=== PATIENT | male | born 1960 | race Caucasian/White ===

== ENCOUNTER 2022-01-10 01:56 | Day surgery (SDC) | payer BC, SELFPAY ==
[2022-01-02 08:36] VITALS: BMI 27.4
--- NOTE | 2022-01-02 08:42 | PC.NURSE ---
Report to the Outpatient Waiting Room, entrance under the green pavilion located off [facility], at time _0630_ on date __01/10/22. OR Time: _0830. - You and your visitor will be asked a series of questions to screen for COVID 19 for your protection. - Only one visitor is allowed at this time. - The patient visitor is requested to leave or wait in car when not with patient. - A mask is required within the hospital. Patients may have clear liquids (water, carbonated beverages, clear teas, apple juice) until 3 hours prior to surgery with a maximum of 20 ounces. - No food from midnight until time of surgery - Infants may have breast milk until 4 hours before surgery, formula 6 hours prior to surgery. - Children will be allowed to drink immediately following surgery. If applicable, please bring a bottle or sippy cup to assist with drinking. Juice, water, soda, and popsicles are readily available. For infants on formula, please bring formula the day of surgery. Pacifiers are allowed. Take the following medications with a SIP of water the morning of surgery: NONE Medications to discontinue per physician NONE Date to take last dose Please no make-up, nail macanese, hairspray, perfume, deodorant, or body powder the day of surgery. No jewelry (including any body piercings) or valuables the day of surgery, leave them at home. Please take a shower or bath the night before, or the morning of, surgery with an antibacterial soap (INSTRUCTED TO USE HIBICLENS). Wear comfortable, loose fitting clothing. Children are encouraged to wear pajamas. - Jewelry must be removed prior to entering the operating room. Rings and piercings that are not removed may be cut off. - The hospital will not accept responsibility for valuables. - Please leave all valuables, including medications, at home the day of surgery. If you are going home after surgery, a licensed mobile lounge driver or operator must drive you home. - NO public transportation without another adult. - We recommend that an adult stay with you for 24 hours following discharge. - We also recommend that you do not drive, make important decision, drink alcoholic beverages, or take any drugs that were not prescribed by your health care provider for at least 24 hours after your discharge time. For Pediatric surgeries, we recommend two adults accompany the child home (only one inside the building at this time). Follow any additional instructions given to you from your surgeon. If you or anyone in your household have experienced Covid symptoms in the past week, please notify your surgeon or the nurse liaison at the phone number below for possible testing. Telephone instructions given to _PATIENT____and asked if any additional questions and then verbalized understanding. Patient advised to call surgeon office or pre surgery nurse liaison [phone] if any additional questions.
[2022-01-10 06:55] VITALS: BP 128/81; PULSE 58; RESP 16; TEMP 36.4; O2SAT 98
[2022-01-10] MEDS: ACETAMINOPHEN 500 MG TABLET 1000 MG PO (07:11)
[2022-01-10] MEDS: KETOROLAC 15 MG/ML VIAL (*BKC) IV PUSH (07:19)
--- NOTE | 2022-01-10 07:48 | P.PNAN_ITS ---
Anes - Initial Pre Proc Eval Procedure: Operation Date: 01/10/22 08:30 Proposed Procedures p Left Inguinal Hernia Repair - Kyle Becker MD Date/Time: 01/10/22 07:48 Surgeon: Kyle Becker MD Pre Op Diagnosis: left inguinal hernia Patient Data Age: 61 Gender: M Height: 1.96 m Weight: 107.5 kg Last Vital Signs Temp 36.4 C L 01/10/22 06:55 Pulse 58 L 01/10/22 06:55 Resp 16 01/10/22 06:55 BP 128/81 01/10/22 06:55 Pulse Ox 98 01/10/22 06:55 O2 Del Method Room Air 01/10/22 06:55 Allergies Allergy/AdvReac Type Severity Reaction Status Date / Time No Known Allergies Allergy Verified 01/10/22 07:07 Home Medications Medication Instructions Recorded Confirmed Type finasteride 5 mg tablet 5 mg PO DAILY 01/01/22 01/10/22 History lisinopril 5 mg tablet 5 mg PO DAILY 01/01/22 01/10/22 History Patient hx anesthesia problems: none Family hx anesthesia problems: none Results Review: All pre-operative results and documents have been reviewed as part of the pre- operative evaluation. [facility] Past Medical History Medical History Enlarged prostate HTN (hypertension) Surgical History Surgical History History of shoulder surgery R shoulder- tendon repair Hx of hernia repair Family History Family History Other Heart disease Social History Social History Smoking status: Never smoker Alcohol intake: current Drinks per week: 4 Living arrangements: with family Anes - Eval Final PreProcedure Day of Procedure 01/10/22 07:48 Patient weight: overweight Heart: regular rate and rhythm Lungs: clear to auscultation Airway: Mallampati scale class II Neurological: alert and oriented Last oral intake: >/= 8 hours ASA classification: II Emergent: no Anesthetic plan: proceed Anesthesia type and monitoring: general GIVS and standard monitoring Results Review: All pre-operative results and documents have been reviewed as part of the pre- operative evaluation. Informed Consent: The patient's anesthetic plan and its attendant risks and benefits were discussed with the patient/family/POA. Questions were solicited and answers provided to the satisfaction of the patient/family/POA.
[2022-01-10] MEDS: LACTATED RINGERS 1,000 ML 30 ML IV CONT ×3 (08:09→10:59)
--- NOTE | 2022-01-10 08:51 | WPDHPUPDATE1 ---
History and Physical Update Update Date/Time: 01/10/22 08:51 History and Physical has been reviewed, including an updated exam of the patient. There are NO changes in the patient's condition. Risks, benefits, and alternatives have been discussed and questions answered. Patient agrees to proceed with procedure.
[2022-01-10] MEDS: ceFAZolin 2 GM/D5W 50 ML 2 GM/50 ML BAG IVPB (08:56)
[2022-01-10] MEDS: BUPIVACAINE/EPINEPHRINE 0.25% 50 ML VIAL 30 ML INFILTRATE (09:02)
[2022-01-10 10:19] VITALS: BP 113/64; PULSE 58; RESP 16; O2SAT 98
[2022-01-10 10:45] VITALS: BP 119/74; PULSE 59; RESP 16; O2SAT 98
--- NOTE | 2022-01-10 11:00 | SUR.PHASEII ---
PATIENT ENCOURAGED TO DRINK LOTS OF WATER; UNDERSTANDS THAT HE NEEDS TO URINATE IN ORDER TO GO HOME.
[2022-01-10 11:15] VITALS: BP 131/78; PULSE 60; RESP 16
[2022-01-10 11:45] VITALS: BP 141/70; PULSE 46; RESP 16
--- NOTE | 2022-01-10 12:20 | P.OP_ITS ---
Procedure Note - Detailed Date of Procedure 01/10/22 Pre-op Diagnosis left inguinal hernia Post-op Diagnosis Same Procedure Performed Repair left inguinal hernia with extra-large PerFix Light plug and patch Surgeon Kyle Becker MD [employer] Lucinda VELÁZQUEZ Anesthesia General (G IV S), Local (0.25% bupivacaine with epinephrine) and Other (Xaracoll) Indications Patient has noticed a bulge in the left groin that was painful on a stress test. He had a previous right inguinal hernia repair. Examination showed a large left inguinal hernia. He is taken to surgery now for repair. Findings Large direct left inguinal hernia Description of Procedure Patient was taken to surgery and anesthesia was introduced. The left groin and genitalia were prepped and draped. The proposed incision was marked on the skin. Local anesthesia was infiltrated into the skin and the deeper subcutaneous tissues. Incision was made dissection was carried down through the subcutaneous and through Hong's fascia. Crossing veins were cauterized and divided. The external oblique aponeurosis was exposed as was the external ring. Additional local was infiltrated deep to the aponeurosis in the area of the spermatic cord and the inguinal canal contents. The external oblique was then opened laterally and extended medially through the external ring. The leaves of the aponeurosis were freed from the underlying inguinal canal contents. The ileoinguinal nerve was left attached to the cord and left unharmed during the procedure. We then mobilized the cord medially on a Tenafly drain. We d issected the cord back to the internal ring. The hernia was fairly obvious and was dissected free from the cord. It was a large direct defect. I looked in the cord and found no evidence of an indirect hernia. We dissected the direct hernia defect to its neck. I then divided the transversalis fascia circumferentially around the neck of the hernia about a cm from the inguinal fascia. I dunked the sac into the retroperitoneum. An extra-large PerFix Light plug was then placed in the deep checked. I sutured the edges of the plug to transversalis fascia with interrupted 3-0 Vicryl suture. I then closed somewhat the defect using some interrupted 4-0 Vicryl suture. The patch was then cut to the appropriate size and placed over the inguinal canal floor. It passed beyond the cord on each side. I then placed the Xaracoll 1st piece over the patch. The cord and ilioinguinal nerve were laid over the Xaracoll. The external oblique aponeurosis was closed with interrupted 3-0 Vicryl suture. A 2nd piece of Xaracoll was laid over the external oblique aponeurosis. Hong's fascia was closed with interrupted 3-0 Vicryl suture. The last piece of Xaracoll was placed in the subcutaneous. The skin was loosely approximated with subcuticular interrupted 4-0 Vicryl skin suture. The skin was finally closed with a running 4-0 Monocryl skin suture. The wound was dressed with Exofin surgical adhesive. Patient was awakened and taken to recovery in good condition. Sponge and needle counts were correct x2. Implants Extra large PerFix Light plug and patch, Xaracoll Estimated Blood Loss -5 Drains No Packing No Pathology None sent Complications No immediate complications Condition Stable Disposition Same day [facility] Billing Surgery - Charge Forward: Surgery Billing (Repair left inguinal hernia)
--- NOTE | 2022-01-10 12:38 | SUR.PHASEII ---
1145 VOIDED WITH GOOD STREAM.
== END 2022-01-10 12:20 | disposition home or self-care (01) ==
PROVIDERS: PCP Family Medicine; Visit Provider Surgery
PROC: (CPT 49505; principal; 2022-01-10 08:30)
DX: K40.90 Unilateral inguinal hernia, without obstruction or gangrene, not specified as recurrent (principal); I10 Essential (primary) hypertension; N40.0 Benign prostatic hyperplasia without lower urinary tract symptoms
CPT/HCPCS: 49505; A9270; C1781; J0690; J1885; J2001; J2250; J2370; J2405; J2704; J3010; J7120

== ENCOUNTER 2023-05-31 03:49 | Day surgery (SDC) | payer BC, SELFPAY ==
[2023-05-22 09:26] VITALS: BMI 26.1
--- NOTE | 2023-05-22 09:32 | PC.NURSE ---
Report to the Outpatient Waiting Room, entrance under the green pavilion located off [facility], at time 0730 on date 05/31/23. Planned Procedure Time: 0930. Time changes happen often and if your time is changed the preop area will call you the afternoon before. - You and your visitor will be asked to self-screen and do not enter if you have any COVID symptoms. - A mask is optional within the hospital at this time. Patients may have clear liquids (water, carbonated beverages, clear teas, apple juice) until 3 hours prior to surgery with a maximum of 20 ounces. - No food from midnight until time of surgery Take the following medications with a SIP of water the morning of surgery: NONE DO NOT STOP ANY OF YOUR OTHER PRESCRIPTION MEDICATIONS PRIOR TO SURGERY ?EXCEPT THE FOLLOWING Medications to discontinue per physician: N/A Date to take last dose: N/A Please no make-up, nail kazakh, hairspray, perfume, deodorant, or body powder the day of surgery. No jewelry (including any body piercings) or valuables the day of surgery, leave them at home. Please take a shower or bath the night before, or the morning of, surgery with an antibacterial soap. Wear comfortable, loose fitting clothing. - Jewelry must be removed prior to entering the operating room. Rings and piercings that are not removed may be cut off. - The hospital will not accept responsibility for valuables. - Please leave all valuables, including medications, at home the day of surgery. If you are going home after surgery, a licensed truss driver helper must drive you home. - NO public transportation without another adult if you receive anesthesia. - We recommend that an adult stay with you for 24 hours following discharge. - We also recommend that you do not drive, make important decision, drink alcoholic beverages, or take any drugs that were not prescribed by your health care provider for at least 24 hours after your discharge time. Follow any additional instructions given to you from your surgeon. If you or anyone in your household have experienced Covid symptoms in the past week, please notify your surgeon or the nurse liaison at the phone number below for possible testing. Telephone instructions given to PT - VIRGIL MCWILLIAMS and asked if any additional questions and then verbalized understanding. Patient advised to call surgeon office or pre surgery nurse liaison [phone] if any additional questions.
--- NOTE | 2023-05-30 18:08 | PM.SD2 ---
Same Day Admit/Disch: HPI History of Present Illness Chief complaint: recurrent left inguinal hernina & umb hernia Narrative: Tyrone Cruz is a 62 year old male who in January of 2022 had an open left inguinal hernia repair with mesh. He started noticing a recurrent left inguinal bulge in early March of this year. He was seen in the office in found to have a recurrent left inguinal hernia. It is reducible and minimally tender. He also has a small umbilical hernia. After discussion, he is taken to surgery at this time for robotic laparoscopic repair of recurrent left inguinal hernia as well as open repair of umbilical hernia as an outpatient. [facility] Past Medical History Medical History Enlarged prostate HTN (hypertension) Surgical History Surgical History H/O inguinal hernia repair Repair left inguinal hernia with extra-large PerFix Light plug and patch 01/10/22 History of shoulder surgery R shoulder- tendon repair Family History Family History Other Heart disease Social History Social History Smoking status: Never smoker Alcohol intake: current Drinks per week: 2 Substance use: never Substance use type: does not use Living arrangements: alone Spiritual care concerns: No Same Day Admit/Disch: Med Pre-admit Medications Home Medications Medication Instructions Recorded Confirmed Type finasteride 5 mg tablet 5 mg PO DAILY 01/01/22 05/31/23 History metformin 500 mg tablet 500 mg PO BID 04/04/23 05/31/23 History ketorolac 10 mg tablet 10 mg PO Q6H 4 days #16 tabs 05/31/23 Rx oxycodone-acetaminophen 5 mg-325 0.5 - 1 tablet PO Q6H PRN pain #10 05/31/23 Rx mg tablet tabs Review of Systems Review of Systems All systems reviewed & are unremarkable except as noted in HPI and below (HPI) DS: Summary Time Spent with Patient Time attestation: Total time spent providing and/or coordinating discharge services: DS: Admitting Diagnosis Discharge Date 05/31/2023 Admitting Diagnosis Recurrent left inguinal hernia-plan to proceed with robotic laparoscopic repair with mesh under general anesthesia. I discussed this procedure with him in detail. I discussed alternatives, risks, benefits. All questions were answered. He understands and wishes to proceed. Umbilical hernia-found incidentally at office exam. Patient would like to have this repaired at the same procedure. We will perform open repair of the umbilical hernia under the same anesthetic. 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 DS: Discharge Diagnosis Discharge Diagnosis (1) Recurrent left inguinal hernia: Code(s): K40.91 - Unilateral inguinal hernia, without obstruction or gangrene, recurrent Status: Acute Assessment and Plan: Robotic laparoscopic inguinal hernia repair performed 05/31/[address] Becker (2) Umbilical hernia without mention of obstruction or gangrene: Code(s): K42.9 - Umbilical hernia without obstruction or gangrene Status: Acute Assessment and Plan: Open umbilical hernia repair of 1.5 cm defect hernia performed at the same anesthetic as the recurrent left inguinal hernia. Discharge Plan Discharge Patient Disposition: Home, Self-Care Discharge Instructions: 1. May shower the day after surgery over incisions. 2. Call office for: -Wound increasingly painful or bleeding -Vomiting -Fever of greater than 101 degrees 3. Wear scrotal support at all times except when sleeping, bathing or showering. May discontinue after 1 week. 4. If no bowel movement for three days, take 1 oz. (30 ml) Milk of Magnesia, if no results, take Fleets enema. 5. No heavy lifting > 15-20 p
[2023-05-31] VITALS (10 sets, daily range): BP systolic 136–168; BP diastolic 79–91; PULSE 65–94; RESP 16–18; TEMP 36.1–36.7; O2SAT 95–100
[2023-05-31] MEDS: LACTATED RINGERS 1,000 ML 30 ML IV CONT ×2 (08:15→12:15)
[2023-05-31] MEDS: ACETAMINOPHEN 500 MG TABLET 1000 MG PO (08:15)
[2023-05-31 08:32] LABS: Glucose Point of Care 106 mg/dl (65-105)
--- NOTE | 2023-05-31 08:38 | WPDANESEPPF ---
Anes - Initial Pre Proc Eval Procedure: Operation Date: 05/31/23 09:30 Proposed Procedures p Robotic Assisted Laparoscopic Recurrent Left Inguinal Hernia Repair, - Kyle Becker MD s Open Umbilical Hernia Repair, Possible Mesh - Kyle Becker MD Date/Time: 05/31/23 08:38 Surgeon: Kyle Becker MD Pre Op Diagnosis: recurrent left inguinal hernina & umb hernia Patient Data Age: 62 Gender: M Height: 1.96 m Weight: 99.8 kg Allergies Allergy/AdvReac Type Severity Reaction Status Date / Time No Known Allergies Allergy Verified 05/31/23 07:59 Home Medications Medication Instructions Recorded Confirmed Type finasteride 5 mg tablet 5 mg PO DAILY 01/01/22 05/31/23 History metformin 500 mg tablet 500 mg PO BID 04/04/23 05/31/23 History Laboratory Tests 05/31/23 08:29 POC Capillary Glucose 106 H mg/dl (65-105) Patient hx anesthesia problems: none Family hx anesthesia problems: none Results Review: All pre-operative results and documents have been reviewed as part of the pre-operative evaluation. [facility] Past Medical History Medical History Enlarged prostate HTN (hypertension) Surgical History Surgical History H/O inguinal hernia repair Repair left inguinal hernia with extra-large PerFix Light plug and patch 01/10/22 History of shoulder surgery R shoulder- tendon repair Family History Family History Other Heart disease Social History Social History Smoking status: Never smoker Alcohol intake: current Drinks per week: 2 Substance use: never Substance use type: does not use Living arrangements: alone Spiritual care concerns: No Anes - Eval Final PreProcedure Day of Procedure 05/31/23 08:38 Patient weight: normal Heart: regular rate and rhythm Lungs: clear to auscultation Airway: Mallampati scale class II Neurological: alert and oriented Last oral intake: >/= 8 hours ASA classification: II Emergent: no Anesthetic plan: proceed Anesthesia type and monitoring: general ETT and standard monitoring Results Review: All pre-operative results and documents have been reviewed as part of the pre-operative evaluation. Informed Consent: The patient's anesthetic plan and its attendant risks and benefits were discussed with the patient/family/POA. Questions were solicited and answers provided to the satisfaction of the patient/family/POA.
--- NOTE | 2023-05-31 08:54 | WPDHPUPDATE1 ---
History and Physical Update Update Date/Time: 05/31/23 08:54 History and Physical has been reviewed, including an updated exam of the patient. There are NO changes in the patient's condition. Risks, benefits, and alternatives have been discussed and questions answered. Patient agrees to proceed with procedure.
[2023-05-31] MEDS: KETOROLAC 15 MG/ML VIAL (*BKC) IV PUSH (09:15)
--- NOTE | 2023-05-31 09:56 | P.PNAN_ITS ---
Anes - Initial Pre Proc Eval Procedure: Operation Date: 05/31/23 09:30 Proposed Procedures p Robotic Assisted Laparoscopic Recurrent Left Inguinal Hernia Repair, - Kyle Becker MD s Open Umbilical Hernia Repair, Possible Mesh - Kyle Becker MD Date/Time: 05/31/23 09:56 Surgeon: Kyle Becker MD Pre Op Diagnosis: recurrent left inguinal hernina & umb hernia Patient Data Age: 62 Gender: M Height: 1.96 m Weight: 99.05 kg Last Vital Signs Temp 98.0 F 05/31/23 08:34 Pulse 65 05/31/23 08:34 Resp 16 05/31/23 08:34 BP 145/91 H 05/31/23 08:34 Pulse Ox 100 05/31/23 08:34 O2 Del Method Room Air 05/31/23 08:34 Allergies Allergy/AdvReac Type Severity Reaction Status Date / Time No Known Allergies Allergy Verified 05/31/23 07:59 Home Medications Medication Instructions Recorded Confirmed Type finasteride 5 mg tablet 5 mg PO DAILY 01/01/22 05/31/23 History metformin 500 mg tablet 500 mg PO BID 04/04/23 05/31/23 History Laboratory Tests 05/31/23 05/31/23 08:19 08:29 POC Capillary Glucose 106 H mg/dl (65-105) Blood Type B Negative Antibody Screen Negative Patient hx anesthesia problems: none Family hx anesthesia problems: none Results Review: All pre-operative results and documents have been reviewed as part of the pre- operative evaluation. [facility] Past Medical History Medical History Enlarged prostate HTN (hypertension) Surgical History Surgical History H/O inguinal hernia repair Repair left inguinal hernia with extra-large PerFix Light plug and patch 01/10/22 History of shoulder surgery R shoulder- tendon repair Family History Family History Other Heart disease Social History Social History Smoking status: Never smoker Alcohol intake: current Drinks per week: 2 Substance use: never Substance use type: does not use Living arrangements: alone Spiritual care concerns: No Anes - Eval Final PreProcedure Day of Procedure 05/31/23 09:56 Patient weight: normal Heart: regular rate and rhythm Lungs: clear to auscultation Airway: Mallampati scale class II Neurological: alert and oriented Last oral intake: >/= 8 hours ASA classification: II Emergent: no Anesthetic plan: proceed Anesthesia type and monitoring: general ETT and standard monitoring Results Review: All pre-operative results and documents have been reviewed as part of the pre-operative evaluation. Informed Consent: The patient's anesthetic plan and its attendant risks and benefits were discussed with the patient/family/POA. Questions were solicited and answers provided to the satisfaction of the patient/family/POA.
[2023-05-31] MEDS: ceFAZolin 2 GM/D5W 50 ML 2 GM/50 ML BAG IVPB (09:59)
[2023-05-31] MEDS: BUPIVACAINE/EPINEPHRINE 0.5% 50 ML VIAL INFILTRATE (10:34)
--- NOTE | 2023-05-31 12:17 | W.PM.PROC2 ---
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 Last March he started noticing a recurrent bulge with discomfort in the left groin. He was seen in the office and noted to have a recurrent left inguinal hernia. He also was noted to have a umbilical hernia that was 1.5 cm for the defect. He is taken to surgery now for repair of both these hernias. Findings Inguinal hernia was a 1.5 cm defect. The left inguinal recurrent hernia was an indirect hernia with quite a large sac. Description of Procedure Patient was taken to the operating room and induced into general anesthesia. The abdomen is prepped and draped. We turned our attention 1st to the umbilical hernia. Local was infiltrated along the superior margin of the umbilicus and into the subcutaneous tissues. Incision was made and dissection was carried down along the hernia sac to the fascia. I dissected around the hernia sac circumferentially. We then divided the hernia sac from the fascia. The defect was 1.5 cm as noted on office exam. Once the umbilical skin was freed from the fascia, I trimmed any remaining bits of hernia sac from the skin. I then undermined the subcutaneous around the hernia defect. The defect was closed with 0 Ethibond. Two [id number] mattress sutures were placed to close the defect securely. Patient had solid fascia with good integrity. The repair looked quite satisfactory. I infiltrated additional local into the fascia. I then used 3-0 Vicryl to suture the umbilical skin to the fascia. Some subcutaneous 3-0 Vicryl sutures were placed. 4-0 Vicryl subcuticular interrupted skin stitches were placed. Finally a running 4-0 Monocryl skin suture was placed. The wound was dressed with Exofin surgical adhesive. We then turned our attention to the robotic laparoscopic inguinal hernia repair. The 3 proposed incisions were marked on the upper abdominal skin. Local was infiltrated in each incision as well as in the subcutaneous tissue. The fascia was infiltrated as well. The 1st incision was made in the left upper quadrant. An applied Medical optical trocar was then placed through the defect in into the peritoneal cavity. Insufflation was carried out. The surgical coordinator then placed 8 mm robotic trocars at the right-sided port and in the midline port. We next passed the 3DMax mesh into the peritoneal cavity and left it in the area of the left groin hernia. Sutures of 3 0 V lock in 2-0 silk were also passed into the peritoneal cavity. The applied Medical 5 mm trocar site was then changed out for an 8 mm robotic port. The robot was brought into the field and the camera was positioned and targeted. The 2 operating ports were docked and instruments placed. With the instruments in the proper position, the surgeon broke scrub and went to the robotic console. The peritoneal flap was started just cephalad to the inguinal canal structures. The flap was dissected free from the abdominal wall structures underneath on both the lateral and medial sides. On the medial side we continued I dissection following the left rectus muscle down to the pubis and Yousif's ligament. I dissected just deep to Yousif's ligament about 2 cm. I also divided some of the connective tissue so that the mesh could lay over the medial aspect of the right rectus muscle. I then went back and continued dissection on the lateral aspect of the flap. The hernia sac was then attended. Reduction on the sac was carried out and some of the transversalis fascia over the top of the hernia sac was divided. I then saw some of the cord structure
[2023-05-31 12:55] LABS: Glucose Point of Care 152 mg/dl (65-105)
[2023-05-31] MEDS: oxyCODONE HCL (*CRX) 5 MG TAB IR PO (13:53)
== END 2023-05-31 15:01 | disposition home or self-care (01) ==
PROVIDERS: PCP Family Medicine; Visit Provider Surgery
PROC: 8E0Y4CZ Robotic Assisted Procedure of Lower Extremity, Percutaneous Endoscopic Approach (ICD-10-PCS; CPT 49650; principal; 2023-05-31 09:30)
PROC: (CPT 49651; 2023-05-31 09:30)
DX: K40.91 Unilateral inguinal hernia, without obstruction or gangrene, recurrent (principal); K42.9 Umbilical hernia without obstruction or gangrene; I10 Essential (primary) hypertension
CPT/HCPCS: 49651; 49591; S2900; 36415; 82948; 86850; 86900; 86901; A9270; C1781; J0690; J1100; J1170; J1885; J2250; J2405; J2704; J3010; J7120